=== PATIENT | female | born 2000 | race Caucasian/White ===

== ENCOUNTER → 2025-09-11 | Outpatient (CLI) | payer OTHER ==
[2025-09-11 15:56] LABS: PLATELET COUNT, AUTOMATED 249 10^3/uL (150-450)
[2025-09-11 16:00] LABS: GLUCOSE CHALLENGE TEST 1 HOUR 126 MG/DL (LESS THAN 140)
[2025-09-11 16:34] LABS: HIV 1&2 SCREEN NEGATIVE (NEGATIVE)
[2025-09-11 16:42] LABS: HEPATITIS C VIRUS ABY INDEX 0.03 INDEX (<0.8)
[2025-09-11 17:00] LABS: Trichomonas vaginalis (AMP) NOT DETECTED (NEGATIVE)
[2025-09-11 17:23] LABS: GC DNA AMPLIFICATION NEGATIVE (NEGATIVE)
== END ==
LOC: M PLALAB 11:51
PROVIDERS: ATTEND Advanced Practice Midwife
DX: Z34.92 Encounter for supervision of normal pregnancy, unspecified, second trimester (principal)

== ENCOUNTER 2025-09-22 14:35 | Outpatient (CLI) | payer OTHER ==
[~2025-09-22] VITALS: Ht 170.2 cm; Wt 77.7 kg
[2025-09-22] MEDS ORDERED: ASPI81CH33 PO (15:07)
[2025-09-22] MEDS ORDERED: PRENTAB9 PO (15:07)
[2025-09-22] MEDS ORDERED: HOME MED LIST COMPLETE! XX SCH (15:10)
== END 2025-09-22 17:34 | disposition home or self-care (01) ==
LOC: M LDO 14:35
PROVIDERS: ATTEND Obstetrics & Gynecology
DX: O36.8130 Decreased fetal movements, third trimester, not applicable or unspecified (principal); Z3A.29 29 weeks gestation of pregnancy; Z87.59 Personal history of other complications of pregnancy, childbirth and the puerperium
CPT/HCPCS: 59025; 76815; 76819; 76820; G0463

== ENCOUNTER → 2025-10-16 | Outpatient (CLI) | payer OTHER ==
[~2025-10-16] MED LIST: ASPI81CH33 PO; PRENTAB9 PO
== END ==
LOC: M PLALAB 08:44
PROVIDERS: ATTEND Advanced Practice Midwife
DX: O36.0930 Maternal care for other rhesus isoimmunization, third trimester, not applicable or unspecified (principal); Z3A.00 Weeks of gestation of pregnancy not specified

== ENCOUNTER → 2025-11-12 | Outpatient (REF) | payer OTHER | LOC: M SFHCWAGY 10:41 | PROVIDERS: ATTEND Specialist | DX: Z34.83 Encounter for supervision of other normal pregnancy, third trimester (principal) ==